=== PATIENT | male | born 1995 | race Caucasian/White ===

== ENCOUNTER 2017-02-06 12:40 | Emergency (ER) | payer OTHER ==
[~2017-02-06] VITALS: Ht 172.7 cm; Wt 59.0 kg
[2017-02-06 12:42] VITALS: BP 143/96; PULSE 79; RESP 16; TEMP 99; O2SAT 98
--- NOTE | 2017-02-06 13:18 | PD ---
Physical Exam Time Seen by Provider: 13:16 Narrative 21 yo M c/o possible insect bit to back on . Increasing in size and worseing of sx. Neg fever, vomiting. VSS Seen in triage, awaiting bed placement. Data Data Last Documented VS Vital Signs Date Time Temp Pulse Resp B/P Pulse Ox O2 Delivery O2 Flow Rate FiO2 02/06/17 12:42 99.0 79 16 143/96 98 Room Air MDM Supervised Visit with PACO: Lupis Soto Feb 06, 2017 13:18
--- NOTE | 2017-02-06 13:32 | PD ---
HPI . two bites to right side of back x 1 week Chief Complaint: Bite or Sting Time Seen by Provider: 13:32 Travel History International Travel<30 days: No Contact w/Intl Traveler<30days: No Traveled to known affect area: No History of Present Illness HPI 21-year-old male with no significant past medical history here with complaints of 2 insect bites to the right side of his back from 1 week ago. Patient was previously seen at [facility] and told that he had a localized reaction to Benadryl, however he tells me that the rash was present prior to using the Benadryl. He went back for reevaluation and was given triamcinolone cream, which seems to be making the area worse. He tells me that the area sensitive to touch and especially hot water. He was walking in some type of forest and is uncertain what type of insect bit him. He does not recall being bitten by a tick. He denies any fever, chills, headache, nausea, vomiting, fatigue, joint pains or etc. He has no other complaints. PFSH Past Medical History Medical History: Denies Significant Hx Diminished Hearing: No Tetanus Vaccination: < 5 Years Influenza Vaccination: Yes Past Surgical History Tonsillectomy: Yes Social History Alcohol Use: No Tobacco Use: No Substance Use: No Allergies-Medications (Allergen,Severity, Reaction): Coded Allergies: No Known Allergies (Unverified , 02/06/17) Reported Meds & Prescriptions Reported Meds & Active Scripts Active Prednisone 50 Mg Tab 50 Mg PO DAILY Doxycycline Hyclate 100 Mg Cap 100 Mg PO BID Review of Systems General / Constitutional: No: Fever Eyes: No: Visual changes HENT: No: Headaches Cardiovascular: No: Chest Pain or Discomfort Respiratory: No: Shortness of Breath Gastrointestinal: No: Abdominal Pain Genitourinary: No: Dysuria Musculoskeletal: No: Pain Skin: Positive Itching, Positive Dryness, Positive Other (possible insect bite) , No Rash Neurologic: No: Weakness Psychiatric: No: Depression Endocrine: No: Polydipsia Hematologic/Lymphatic: No: Easy Bruising Physical Exam Narrative GENERAL: AAO x 3, no acute distress, Well-nourished, well-developed patient. SKIN: Warm and dry. No visible rashes or bruising. 2 half dollar sized lesions on the right side to the back. Both are erythematous, with small papules coalesced into one larger lesion, there appears to be some central clearing near the actual bite bear. No hives present. HEAD: Normocephalic and atraumatic. EYES: No scleral icterus. No injection or drainage. EOM intact, PERRLA ENT: No nasal drainage noted. Mucous membranes pink. Airway patent. NECK: Supple, trachea midline. No JVD. CARDIOVASCULAR: Regular rate and rhythm without murmurs, gallops, or rubs. RESPIRATORY: Breath sounds equal bilaterally. No accessory muscle use. No rhonchi or rales. GASTROINTESTINAL: Abdomen soft, non-tender, nondistended. EXTREMITIES: No cyanosis or edema. BACK: Nontender without obvious deformity. No CVA tenderness. PSYCH: AAO x 3, normal affect. Data Data Last Documented VS Vital Signs Date Time Temp Pulse Resp B/P Pulse Ox O2 Delivery O2 Flow Rate FiO2 02/06/17 12:42 99.0 79 16 143/96 98 Room Air MDM Medical Decision Making Medical Screen Exam Complete: Yes Emergency Medical Condition: Yes Medical Record Reviewed: Yes Differential Diagnosis Allergic reaction, tick exposure, less likely cellulitis Narrative Course 21-year-old male with no significant past medical history here with complaints of 2 insect bites to the right side of his back from 1 week ago. Patient was previously seen at [facility] and told that he had a localized reaction to Benadryl, however he tells me that the rash was present prior to using the Benadryl. He went back for reevaluation and was given triamcinolone cream, which seems to be making the area worse. He tells me that the area sensitive to touch and especially hot water. He was walking in some type of forest and is uncertain what type of insect bit him. He does not recall being bitten by a tick. He denies any fever, chills, headache, nausea, vomiting, fatigue, joint pains or etc. He has no other complaints. Patient seen and examined. Case discussed with Dr. Marte. I will go ahead and treat with doxy to cover possible Lyme disease as there is some central clearing. Exact exposure to a tick is uncertain, however benefits outweigh risk. There does seem to be a localized allergic reaction, I will provide oral prednisone for this. per up to date: Most of the trials of therapy for erythema migrans used a treatment duration of 21 days [4-10]. However, other trials of doxycycline have shown that 10 to 14 days of therapy is as effective as more prolonged therapy in most patients [16-19]. 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 Patient verbalized understanding of instructions, questions were answered, and thanked me for their care. I advised them if their condition worsens, please return to the nearest emergency room for further care. Diagnosis Primary Impression: Insect bite Qualified Code: W57.XXXA - Insect bite, initial encounter Patient Instructions: General Allergic Reaction (ED), General Instructions Additional Instructions: Please return to emergency department if your symptoms return or worsen. Follow up with your primary care provider. Take medications as prescribed. Med/Other Pt SpecificInfo: Prescription(s) given Scripts Prednisone 50 Mg Tab50 Mg PO DAILY #5 TAB Prov:Amrik Marte MD 02/06/17 Doxycycline Hyclate 100 Mg [id number] Mg PO BID #28 CAP Ref 0 Prov:Amrik Marte MD 02/06/17 Disposition: 01 DISCHARGE HOME Condition: Stable Gloria Klein Feb 06, 2017 13:32
[2017-02-06] MEDS ORDERED: PRED50 PO (13:55)
[2017-02-06] MEDS ORDERED: DOXY100C PO (13:55)
== END 2017-02-06 14:50 | disposition home or self-care (01) ==
LOC: NEPK 12:40
DX: S20.461A Insect bite (nonvenomous) of right back wall of thorax, initial encounter (principal); W57.XXXA Bitten or stung by nonvenomous insect and other nonvenomous arthropods, initial encounter; Y92.821 Forest as the place of occurrence of the external cause
CPT/HCPCS: 99282

== ENCOUNTER 2018-01-10 11:06 | Emergency (ER) | payer OTHER ==
[~2018-01-10] VITALS: Ht 175.3 cm; Wt 66.2 kg
[~2018-01-10 11:06] MED LIST: DOXY100C PO; PRED50 PO
[2018-01-10 11:08] VITALS: BP 131/81; PULSE 78; RESP 16; TEMP 97.8; O2SAT 100
[2018-01-10] MEDS ORDERED: TRIA.1%T TOPICAL (11:30)
[2018-01-10] MEDS ORDERED: MEDR4PAK PO (11:30)
--- NOTE | 2018-01-10 11:31 | PD ---
HPI Chief Complaint: Skin Problem Time Seen by Provider: 11:19 Travel History International Travel<30 days: No Contact w/Intl Traveler<30days: No Traveled to known affect area: No History of Present Illness HPI 22 year old male presents to the emergency department for evaluation of an itchy rash to genitals that has been ongoing for approximately 6 months. He states she has seen dermatologists and a urologist for the issue. He state he had a skin biopsy completed and was told it was "dermatitis". He states steroid creams help temporarily and then it will come back. No fevers/chills. He reports no chronic medical problems and takes no prescribed medications. Patient denies any fevers/chills or any other symptoms. When asked what prompted him to come to the emergency department today, he states "I am sick of having it". No pain. Mild severity. He denies any penile discharge or risk of STDs. PFSH Past Medical History Diminished Hearing: No Tetanus Vaccination: Unknown ?: Not Past Surgical History Eye Surgery: Yes ([facility]) Tonsillectomy: Yes Social History Alcohol Use: No Tobacco Use: No Substance Use: No Allergies-Medications (Allergen,Severity, Reaction): Coded Allergies: No Known Allergies (Unverified Adverse Reaction, Unknown, 01/10/18) Reported Meds & Prescriptions Reported Meds & Active Scripts Active Prednisone 50 Mg Tab 50 Mg PO DAILY Doxycycline Hyclate 100 Mg Cap 100 Mg PO BID Review of Systems Except as stated in HPI: all other systems reviewed are Neg Physical Exam Narrative GENERAL: Well-nourished, well-developed male patient, afebrile. SKIN: Focused skin assessment warm/dry. Patient has multiple erythematous papules to scrotum/groin/penis without drainage or fluctuance. No evidence of cellulitis or abscess. No evidence of HSV. Genital exam was done with RN at bedside. HEAD: Normocephalic. Atraumatic. EYES: No scleral icterus. No injection or drainage. RESPIRATORY: No accessory muscle use. GASTROINTESTINAL: Abdomen soft, non-tender, nondistended. MUSCULOSKELETAL: No cyanosis, or edema. Data Data Last Documented VS Vital Signs Date Time Temp Pulse Resp B/P (MAP) Pulse Ox O2 Delivery O2 Flow Rate FiO2 01/10/18 11:08 97.8 78 16 131/81 (98) 100 MDM Medical Decision Making Medical Screen Exam Complete: Yes Emergency Medical Condition: Yes Medical Record Reviewed: Yes Differential Diagnosis Dermatitis versus Ольга versus insect bite versus HSV Narrative Course 22-year-old male presents to the emergency department for evaluation of a rash to the groin a has had for 6 months. He has seen multiple specialists and was diagnosed with dermatitis. He denies any new or worsening symptoms, but states he gets sick of having it. He is requesting lab work. I explained that lab work is not indicated at this time he should follow-up with his junior qa analyst. Patient is requesting oral steroids stating that they have helped the past. Patient will be discharged prescription for a Medrol Dosepak and triamcinolone cream. The patient was discharged in stable condition with instructions, including return instructions and follow up instructions. Diagnosis Primary Impression: Dermatitis Referrals: Instrumentation Controls Engineer call for appointment Patient Instructions: Dermatitis (ED), General Instructions Additional Instructions: Take Medrol Dosepak as directed. Use triamcinolone cream as instructed. Follow-up with your junior qa analyst. Return to the emergency department for any acute worsening of symptoms. Med/Other Pt SpecificInfo: Prescription(s) given Scripts Triamcinolone Topical (Triamcinolone Topical) 0.1% Cream 1 APPLIC TOPICAL BID for Inflammation, #1 TUBE 0 Refills Prov: Carly Lopez 01/10/18 Methylprednisolone Dosepak (Medrol Dosepak) 4 Mg Dspk 4 MG PO DIRECTED, #1 DSPK 0 Refills Per Pharmacist direction Prov: Carly Lopez 01/10/18 Disposition: 01 DISCHARGE HOME Condition: Stable Carly Lopez Jan 10, 2018 11:31
== END 2018-01-10 11:36 | disposition home or self-care (01) ==
LOC: PHEFT 11:06
DX: L30.9 Dermatitis, unspecified (principal)
CPT/HCPCS: 99283